=== PATIENT | male | born 1975 | race Caucasian/White ===

== ENCOUNTER 2018-08-07 04:02 | Emergency (ER) | payer SELFPAY ==
--- NOTE | ~2018-08-07 | EKG ---
[place], [place] ELECTROCARDIOGRAM REPORT NAME: LEIF ALVARADO JR UNIT #: [id number] ROOM: DOCTOR: EPIPHANY DRAFT REPORT BIRTHDATE: [birth year] [facility] [place] Test Date: 2018-08-07 Test Time: 04:36:14 Pat Name: LEIF ALVARADO Department: Room: Gender: Keyboard Operator: 50 : 1975 Requested By: EDMOND MURRAY Order Number: [id number] Reading MD: Anthony Santoyo MD Measurements Intervals [place] Rate: 61 P: 3 DE: 173 QRS: 21 QRSD: 113 T: -12 QT: 422 QTc: 425 Interpretive Statements Sinus rhythm Probable left ventricular hypertrophy Borderline T abnormalities, inferior leads Electronically Signed On 08-09-2018 12:53:41 PST by Anthony Santoyo MD CM:EKGRPT:ELECTROCARDIOGRAM REPORT [id number] EDMOND WAGGONER DRAFT REPORT EDMOND MURRAY DO
[~2018-08-07 04:02] MED LIST: CLINDAMYCIN HC300 MG PO; MOTRIN800 MG PO
[2018-08-07 04:44] LABS: BASO % 0.2 % (0.0-1.0); EOS % 0.5 % (1.0-4.0); HEMATOCRIT 44.6 % (42.0-52.0); HEMOGLOBIN 14.9 g/dl (14.0-18.0); LYMPH % 32.5 % (27.0-41.0); MEAN CELL VOLUME 87.5 fl (80.0-94.0); MEAN CORPUSCULAR HGB 29.2 pg (27.0-31.0); MEAN CORPUSCULAR HGB CONC 33.4 g/dl (33.0-37.0); MEAN PLATELET VOLUME 9.6 fl (9.6-12.3); MONO # 0.4 10*3/uL (0.1-1.0); MONO % 6.3 % (3.0-9.0); NEUT # 3.6 10*3/uL (2.3-7.9); NEUT % 60.3 % (47.0-73.0); PLATELET COUNT AUTOMATED 257 10*3/uL (130-400); RED CELL DISTRI WIDTH 12.4 % (0-14.5)
[2018-08-07 05:01] LABS: ALBUMIN 3.7 gm/dl (3.1-4.5); ALKALINE PHOSPHATASE 57 U/L (45-117); BUN 9 mg/dl (7-24); CHLORIDE 104 mmol/L (98-107); CREATININE 0.73 mg/dL (0.70-1.30); POTASSIUM 3.1 mmol/L (3.5-5.1); SGOT/AST 17 IU/L (3-35); SGPT/ALT 23 U/L (12-78); SODIUM 139 mmol/L (136-145); TOTAL PROTEIN 7.3 gm/dL (6.4-8.2)
[2018-08-07 05:06] LABS: TROPONIN I < 0.015 ng/ml (<0.045)
== END 2018-08-07 11:20 | disposition left against medical advice (07) ==
LOC: ED 04:02
PROVIDERS: Emergency Medicine
DX: F10.129 Alcohol abuse with intoxication, unspecified (principal); Z88.0 Allergy status to penicillin; Z79.2 Long term (current) use of antibiotics